=== PATIENT | female | born 1945 | race Asian ===

== ENCOUNTER 2018-06-15 07:24 | Emergency (ER) | payer MEDICARE, BC ==
[~2018-06-15] VITALS: Ht 154.9 cm; Wt 58.2 kg
[2018-06-15] MEDS ORDERED: HYPERTENSIVE PO (07:59)
[2018-06-15] MEDS ORDERED: METF-960 PO (07:59)
[2018-06-15 08:04] LABS: GLUCOSE,POINT OF CARE 113 MG/DL (70-110)
[2018-06-15] MEDS ORDERED: KETOROLAC TROMETHAMINE 60 MG/2 ML VIAL IM ONE (09:15)
[2018-06-15] MEDS ORDERED: METHOCARBAMOL 500 MG TABLET PO ONE (09:15)
[2018-06-15 09:50] VITALS: BP 148/62
== END 2018-06-15 10:00 | disposition home or self-care (01) ==
LOC: EMS 07:25
DX: S39.012A Strain of muscle, fascia and tendon of lower back, initial encounter (principal); I10 Essential (primary) hypertension; E11.9 Type 2 diabetes mellitus without complications; E78.00 Pure hypercholesterolemia, unspecified; X50.0XXA Overexertion from strenuous movement or load, initial encounter; Y93.89 Activity, other specified; Y92.89 Other specified places as the place of occurrence of the external cause; Y99.8 Other external cause status
CPT/HCPCS: 82962; 96372; 99283; J1885